=== PATIENT | female | born 2000 | race Caucasian/White ===

== ENCOUNTER 2020-02-06 01:34 | Observation (INO) | payer OTHER ==
[~2020-02-06] VITALS: Ht 154.9 cm; Wt 88.0 kg
[2020-02-06] MEDS ORDERED: LR 1,000 ML IV SCH (02:19)
[2020-02-06] MEDS ORDERED: TERBUTALINE SULFATE 1 MG/ML VIAL SUBCUT PRN (02:30)
== END 2020-02-06 04:59 | disposition home or self-care (01) ==
LOC: SPU 01:34
PROVIDERS: ADMIT Obstetrics & Gynecology; ATTEND Obstetrics & Gynecology
DX: O34.63 Maternal care for abnormality of vagina, third trimester (principal); N89.8 Other specified noninflammatory disorders of vagina; O62.9 Abnormality of forces of labor, unspecified; Z3A.31 31 weeks gestation of pregnancy
CPT/HCPCS: 81002; G0378; J3105; 59899